=== PATIENT | female | born 1965 | race Caucasian/White ===

== ENCOUNTER 2022-01-02 08:25 | Outpatient (CLI) | payer BC | END 2022-01-02 08:26 | disposition home or self-care (01) | LOC: BICMAMMO 08:25 | PROVIDERS: ATTEND Nurse Practitioner Family | DX: Z12.31 Encounter for screening mammogram for malignant neoplasm of breast (principal) | CPT/HCPCS: 77063; 77067 ==

== ENCOUNTER 2022-01-12 10:50 | Outpatient (CLI) | payer BC | END 2022-01-12 10:51 | disposition home or self-care (01) | LOC: BICULT 10:50 | PROVIDERS: ATTEND Internal Medicine Nephrology | DX: I12.9 Hypertensive chronic kidney disease with stage 1 through stage 4 chronic kidney disease, or unspecified chronic kidney disease (principal); N18.30 Chronic kidney disease, stage 3 unspecified | CPT/HCPCS: 76770 ==

== ENCOUNTER 2022-02-24 11:13 | Outpatient (CLI) | payer BC | END 2022-02-24 11:14 | disposition home or self-care (01) | LOC: BICCT 11:13 | PROVIDERS: ATTEND Urology | DX: N20.0 Calculus of kidney (principal); Q61.5 Medullary cystic kidney; M41.9 Scoliosis, unspecified | CPT/HCPCS: 74176 ==

== ENCOUNTER 2022-05-29 10:38 | Outpatient (CLI) | payer BC | END 2022-05-29 10:39 | disposition home or self-care (01) | LOC: NM 10:38 | PROVIDERS: ATTEND Specialist | DX: E21.3 Hyperparathyroidism, unspecified (principal); Z90.09 Acquired absence of other part of head and neck | CPT/HCPCS: 78072; A9500 ==

== ENCOUNTER 2022-08-07 16:24 | Inpatient (IN) | payer BC ==
[2022-08-07] MEDS ORDERED: Sodium Bicarb 50 MEQ/50 ML Abboject 8.4% SYRINGE ONE (16:30)
[2022-08-07] MEDS ORDERED: EPINEPHrine 1 MG/10 ML Abboject SYRINGE ONE (16:30)
[2022-08-07] MEDS ORDERED: Calcium Chloride 1 GM/10 ML Abboject SYRINGE ONE (16:30)
[2022-08-07 17:04] LABS: pH, Arterial 6.84 (7.35-7.45)
[2022-08-07 17:05] LABS: Actual Bicarbonate (HCO3a) 11.3 mEq/L (22-28); Base Excess (BEa) -23.7 mEq/L (-2.0 to +3.0); CO2 Tension 67.1 mmHg (35.0-45.0); Carboxyhemoglobin (COHb) 0.3 gm% (0.0-3.0); O2 Tension (PaO2), arterial 72.7 mmHg (80.0-100.0)
[2022-08-07 17:06] LABS: ALV-art Gradient 556.425 mmHg (0-20); Analyzer IN Cardio ER; Calcium, Ionized (arterial) 1.66 mmol/L (1.12-1.30); Potassium - ABG Lab 5.75 mmol/L (3.70-5.30); Puncture Site RFA
[2022-08-07] MEDS ORDERED: DOPamine 400 MG/D5W 250 ML 250 ML ONE (17:10)
[2022-08-07 17:13] LABS: Hemoglobin 15.4 g/dL (12.0-16.0); Mean Corpuscular HGB CONC 30.7 g/dL (32.0-36.0); Mean Platelet Volume 9.3 fL (7.4-10.4); Platelet Count 198 10x3/uL (130-400); RBC Distribution Width 13.6 % (11.5-14.5); Red Blood Cell (RBC) Count 4.95 mill/uL (4.20-5.40); White Blood Cell (WBC) Count 8.2 10x3/uL (4.8-10.8)
[2022-08-07 17:25] LABS: Band 3 % (5-11); Lymphocytes 64 % (21-51); MDiff Complete? YES; Macrocytosis SLIGHT = 6-15 cells (100X) (0-5/hpf); Metamyelocyte 1 % (0-0); Monocytes 3 % (0-10); Myelocyte 1 % (0-0); Neutrophil 27 % (42-75); Nucleated RBC 2 % (0); Platelet Morphology Comment Appears Adequate; Polychromasia SLIGHT = 2-3 cells (100X) (0-2/hpf); Reactive Lymphocytes 1 % (0-10)
[2022-08-07 17:55] LABS: CKMB 3.8 ng/mL (0-6.6)
[2022-08-07] MEDS ORDERED: Ondansetron PF 4 MG/2 ML Vial IVP PRN (18:54)
[2022-08-07] MEDS ORDERED: EPINEPHrine 4 MG in Dextrose 5% in Water 250 ML IV SCH (18:54)
[2022-08-07] MEDS ORDERED: Ondansetron ODT 4 MG TAB PO PRN (18:54)
[2022-08-07] MEDS ORDERED: DOPamine 400 MG/D5W 250 ML 250 ML IVPB SCH (18:54)
[2022-08-07] MEDS ORDERED: Electrolyte Replacement Protocol FS PRN (18:54)
[2022-08-07] MEDS ORDERED: Acetaminophen 650 MG Suppository PR PRN (18:54)
[2022-08-07 18:59] LABS: ALT (SGPT) 622 U/L (8-55); AST (SGOT) 594 U/L (5-34); Albumin 3.5 g/dL (3.5-5.0); Alkaline Phosphatase 181 U/L (40-110); Anion Gap 26 mmol/L (10-20); BUN (Urea Nitrogen) 15 mg/dL (9.8-20.1); Bilirubin, Total 0.9 mg/dL (0.2-1.2); Calc. Creatinine Clearance 0 mL/min (70-130); Calcium 11.8 mg/dL (7.8-10.44); Carbon Dioxide 16 mmol/L (22-29); Chloride 102 mmol/L (98-107); Estimated GFR 47; Globulin 3.1 g/dL (2.4-3.5); Glucose 254 mg/dL (70-105); Potassium 6.2 mmol/L (3.5-5.1); Protein, Total 6.6 g/dL (6.0-8.3); Sodium 138 mmol/L (136-145)
[2022-08-07] MEDS ORDERED: Sodium Bicarb 50 MEQ/50 ML VIAL IVP SCH (19:30)
[2022-08-07 20:00] VITALS: BP 66/47
[2022-08-07 20:30] VITALS: BMI 52.3
[2022-08-07] MEDS ORDERED: Famotidine/PF 20 mg/2ml Vial SLOW IVP SCH (21:00)
[2022-08-07 21:04] LABS: ALT (SGPT) 645 U/L (8-55); AST (SGOT) 678 U/L (5-34); Albumin 3.4 g/dL (3.5-5.0); Alkaline Phosphatase 213 U/L (40-110); Anion Gap 21 mmol/L (10-20); BUN (Urea Nitrogen) 18 mg/dL (9.8-20.1); Calc. Creatinine Clearance 73 mL/min (70-130); Calcium 10.2 mg/dL (7.8-10.44); Carbon Dioxide 23 mmol/L (22-29); Chloride 102 mmol/L (98-107); Estimated GFR 37; Glucose 287 mg/dL (70-105); Magnesium 2.6 mg/dL (1.6-2.6); Potassium 5.4 mmol/L (3.5-5.1); Protein, Total 6.4 g/dL (6.0-8.3); Sodium 141 mmol/L (136-145)
[2022-08-07 21:07] LABS: Lactic Acid 8.4 mmol/L (0.5-2.2)
[2022-08-07] MEDS ORDERED: Vasopressin 20 UNIT, Admixture Fee 1 EACH in Sodium Chloride 0.9% 50 ML IV SCH (23:15)
[2022-08-07 23:43] LABS: Analyzer IN Cardio ER; Base Excess (BEa) -9.3 mEq/L (-2.0 to +3.0); CO2 Tension 28.1 mmHg (35.0-45.0); Calcium, Ionized (arterial) 1.39 mmol/L (1.12-1.30); Carboxyhemoglobin (COHb) 0.2 gm% (0.0-3.0); Hemoglobin (Hb) 16.5 g/dL (12.0-16.0); O2 Tension (PaO2), arterial 65.7 mmHg (80.0-100.0)
[2022-08-07 23:44] LABS: Actual Bicarbonate (HCO3a) 14.7 mEq/L (22-28)
[2022-08-07 23:45] LABS: Potassium - ABG Lab 6.02 mmol/L (3.70-5.30); pH, Arterial 7.34 (7.35-7.45)
[2022-08-07 23:46] LABS: ALV-art Gradient 612.175 mmHg (0-20); Puncture Site RFA
[2022-08-10] MEDS ORDERED: FLU VACC QS2022-23(6MOS UP)/PF 60 MCG/0.5 ML SYRINGE IM ONE (09:00)
== END 2022-08-07 23:36 | disposition expired | DRG 296 ==
LOC: ERS 16:24 → CCU 17:31
PROVIDERS: ADMIT Family Medicine; ATTEND Family Medicine
PROC: 5A1935Z Respiratory Ventilation, Less than 24 Consecutive Hours (ICD-10-PCS; principal; 2022-08-07)
PROC: 5A12012 Performance of Cardiac Output, Single, Manual (ICD-10-PCS; 2022-08-07)
PROC: 5A2204Z Restoration of Cardiac Rhythm, Single (ICD-10-PCS; 2022-08-07)
PROC: 3E033XZ Introduction of Vasopressor into Peripheral Vein, Percutaneous Approach (ICD-10-PCS; 2022-08-07)
PROC: 06HY33Z Insertion of Infusion Device into Lower Vein, Percutaneous Approach (ICD-10-PCS; 2022-08-07)
PROC: 0D9670Z Drainage of Stomach with Drainage Device, Via Natural or Artificial Opening (ICD-10-PCS; 2022-08-07)
DX: I46.9 Cardiac arrest, cause unspecified (principal); Z66 Do not resuscitate; G93.41 Metabolic encephalopathy; J96.01 Acute respiratory failure with hypoxia; K72.00 Acute and subacute hepatic failure without coma; E87.20 Acidosis, unspecified; G93.1 Anoxic brain damage, not elsewhere classified; J81.1 Chronic pulmonary edema; R57.0 Cardiogenic shock; E87.5 Hyperkalemia; Z79.899 Other long term (current) drug therapy
CPT/HCPCS: 36600; 71045; 80053; 82553; 82805; 83605; 83690; 83735; 83880; 84484; 85025; 93005; 94002; J0171; J1265; J7070; S0028